=== PATIENT | male | born 1975 | race Asian ===

== ENCOUNTER 2019-01-21 14:20 | Emergency (ER) | payer MEDICARE ==
[~2019-01-21] VITALS: Ht 162.6 cm; Wt 87.0 kg
[2019-01-21 19:10] VITALS: BP 125/81
== END 2019-01-21 19:11 | disposition home or self-care (01) ==
LOC: ER 14:20
DX: G47.00 Insomnia, unspecified (principal); E11.9 Type 2 diabetes mellitus without complications; F17.200 Nicotine dependence, unspecified, uncomplicated
CPT/HCPCS: 99283; 99406

== ENCOUNTER 2019-01-24 02:37 | Emergency (ER) | payer MEDICARE ==
[~2019-01-24] VITALS: Ht 172.7 cm; Wt 91.0 kg
[2019-01-24] MEDS ORDERED: SODIUM CHLORIDE 0.9% 1,000 ML IV ONE (06:23)
[2019-01-24] MEDS ORDERED: INSULIN REGULAR (HUMULIN R) 300UNITS/3ML IV ONE (06:30)
[2019-01-24 06:36] VITALS: BP 130/72
== END 2019-01-24 07:18 | disposition left against medical advice (07) ==
LOC: ER 02:37
DX: E11.65 Type 2 diabetes mellitus with hyperglycemia (principal); M79.662 Pain in left lower leg; L84 Corns and callosities; R03.0 Elevated blood-pressure reading, without diagnosis of hypertension
CPT/HCPCS: 82962; 99283; J7030